=== PATIENT | female | born 1970 | race Caucasian/White ===

== ENCOUNTER 2016-06-23 16:15 | Emergency (ER) | payer OTHER ==
[~2016-06-23] VITALS: Ht 160 cm; Wt 70.9 kg
[2016-06-23 16:30] VITALS: BP 134/88
== END 2016-06-23 18:04 | disposition home or self-care (01) ==
LOC: ED 18:00
DX: S63.615A Unspecified sprain of left ring finger, initial encounter (principal); J45.909 Unspecified asthma, uncomplicated; K21.9 Gastro-esophageal reflux disease without esophagitis; X58.XXXA Exposure to other specified factors, initial encounter; Y93.89 Activity, other specified; Y99.8 Other external cause status; Y92.89 Other specified places as the place of occurrence of the external cause
CPT/HCPCS: 29130; 99284